=== PATIENT | female | born 1940 | race Caucasian/White ===

== ENCOUNTER 2025-09-04 09:00 | Outpatient (AMB) | payer OTHER, SELFPAY ==
--- NOTE | 2025-09-04 09:27 | A.OFFVIS_ITS ---
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 She was treated for parkinsonism and tremor. She is presenting with follow-up concerns related to her Parkinson's Disease management. Her primary concerns are increasing tremors and reported abdominal distension. The patient notes her Parkinson?s medications help with bradykinesia but have little effect on her shaking. She also experiences increased slowness in leg movements. The patient does not report any significant cognitive impairment or mood disturbances. Medication adjustments prioritize maintaining stability without increasing sedation to reduce fall risk. [facility] Medical History (Updated 09/04/25 @ 09:34 by Jerzy Busby MD) Cerebral microvascular disease Parkinsonism, secondary Dementia with Lewy bodies Review of Systems Narrative General: She was feeling some hand swelling Psychiatric: Mood was also but no hallucinations or delusions Neurological, she was complaining of tremor and difficulty walking Sleep: Sleep was okay she said that with medicines she was sleeping okay Physical Exam Neuro Other: Mental Status: She is alert and awake with normal spontaneity and fluency of speech and answering questions appropriately. Affect was okay. Cranial Nerves: CN II: Visual gomez full to confrontation, visual acuity intact. CN III, IV, : Pupils equal, round, reactive to light and accommodation. Extraocular movements are normal. CN V: Facial sensation is normal. CN VII: Facial movements symmetrical. CN VIII: Hearing intact to bedside conversation is normal. CN IX, X: Palate elevates symmetrically. CN XI: Shoulder shrug and head turn symmetrical. CN XII: Tongue midline without atrophy or fasciculations. Motor: Deep tendon reflexes were absent. Gait and Station: In a wheelchair. Extrapyramidal: Mild bilateral resting hand tremor Speech: Normal; no dysarthria or tremor. Assessment & Plan Assessment & Plan (1) Dementia with Lewy bodies: Comment: MRI brain WO at [place] in February 2024: Mod MVD, mild atrophy. Code(s): G31.83 - Neurocognitive disorder with Lewy bodies; F02.80 - Dementia in other diseases classified elsewhere, unspecified severity, without behavioral disturbance, psychotic disturbance, mood disturbance, and anxiety Category: Medical Qualifiers: Dementia severity: moderate Dementia behavioral or psychological symptom: with other behavioral disturbance Qualified Code(s): G31.83 - Neurocognitive disorder with Lewy bodies; F02.B18 - Dementia in other diseases classified elsewhere, moderate, with other behavioral disturbance (2) Parkinsonism, secondary: Code(s): G21.9 - Secondary parkinsonism, unspecified Category: Medical Qualifiers: Secondary Parkinsonism type: vascular Qualified Code(s): G21.4 - Vascular parkinsonism (3) Cerebral microvascular disease: Code(s): I67.89 - Other cerebrovascular disease Category: Medical Plan Impression: a: Multifactorial dementia b: Cerebral microvascular disease c: Parkinsonism, either vascular or part of dementia Rec: a: Education b: Continue carbidopa/levodopa 25/100 tid b: Continue primidone 50mg bid Medications: New primidone 50 mg PO DAILY 180 tabs 1RF carbidopa-levodopa 25-100 mg 1 tab PO TID 270 tabs 1RF Coding Level of Care Code Est Pt Level 3 (42822) Global (60706) Diagnoses Moderate Lewy body dementia with other behavioral disturbance G31.83; F02.B18 Dementia severity: moderate Dementia behavioral or psychological symptom: with other behavioral disturbance 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
== END 2025-09-04 09:37 | disposition home or self-care (01) ==
LOC: HO.HSM 09:01
PROVIDERS: Visit Provider Psychiatry & Neurology Neurology
DX: G31.83 Neurocognitive disorder with Lewy bodies (principal); F02.B18 Dementia in other diseases classified elsewhere, moderate, with other behavioral disturbance; G21.4 Vascular parkinsonism; I67.89 Other cerebrovascular disease
CPT/HCPCS: 99213; G2211